=== PATIENT | male | born 1965 | race Caucasian/White ===

== ENCOUNTER 2020-02-29 04:02 | Emergency (ER) | payer MEDICAID ==
[2020-02-29 04:13] VITALS: BP 163/104; PULSE 102
--- NOTE | 2020-02-29 04:49 | EDM.PDOC ---
ED HPI GENERAL MEDICAL PROBLEM - General Chief Complaint: Lower Extremity Injury/Pain Stated Complaint: Left leg numbness, left foot pain Time Seen by Provider: 02/29/20 04:15 Source of Information: Reports: Patient History Limitations: Reports: No Limitations - History of Present Illness INITIAL COMMENTS - FREE TEXT/NARRATIVE: Pt states he has had increased pain in left foot today and has had increased numness in leg for past several weeks Is diabetic No injury No fever No open areas Onset: Gradual Duration: Day(s):, Getting Worse Location: Reports: Lower Extremity, Left Quality: Reports: Ache, Throbbing Severity: Moderate Left Foot Pain Score (Numeric/FACES): 8 - Related Data Allergies Allergy/AdvReac Type Severity Reaction Status Date / Time hydrocodone Allergy Nausea and Verified 02/29/20 04:06 Vomiting oxycodone [Oxycodone] Allergy Nausea and Verified 02/29/20 04:06 Vomiting tramadol Allergy Nausea and Verified 02/29/20 04:06 Vomiting Home Meds: Home Meds Insulin Glargine,Hum.Rec.Anlog [Lantus Solostar] 20 unit SQ BEDTIME 02/20/14 [History] glyBURIDE [Glyburide] 5 mg PO DAILY 02/20/14 [History] metFORMIN [Glucophage] 1,000 mg PO BID 02/20/14 [History] sitaGLIPtin Phosphate [Januvia] 100 mg PO DAILY 02/20/14 [History] Bilberry 100 mg PO DAILY 10/08/15 [History] Naproxen Sodium [Aleve] 220 mg PO Q12H PRN 10/08/15 [History] Past Medical History HEENT History: Reports: Impaired Vision Cardiovascular History: Reports: High Cholesterol, Hypertension Respiratory History: Reports: Sleep Apnea Neurological History: Reports: CVA Endocrine/Metabolic History: Reports: Diabetes, Type II, Other (See Below) Other Endocrine/Metabolic History: Gout - Past Surgical History HEENT Surgical History: Reports: Other (See Below) GI Surgical History: Reports: Colonoscopy, Polypectomy Social & Family History - Living Situation & Occupation Living situation: Reports: , with Family Occupation: Employed Review of Systems - Review of Systems Review Of Systems: See Below Musculoskeletal: Reports: Other (left leg and foot pain) ED EXAM, GENERAL - Physical Exam Exam: See Below Extremities: Other (Left foot with mild edema Faint erythema to skin No joint effusion Skin intact with no open areas Mild decreased sensation) Course - Vital Signs Last Recorded V/S: Last Vital Signs Temp 99.2 F 02/29/20 04:12 Pulse 102 H 02/29/20 04:12 Resp 12 02/29/20 04:12 BP 163/104 H 02/29/20 04:12 Pulse Ox 100 02/29/20 04:12 - Orders/Labs/Meds Orders: Active Orders 24 hr Category Date Time Status Ankle Min 3V Lt [CR] Stat Exams 02/29/20 04:10 Ordered CBC WITH AUTO DIFF [HEME] Stat Lab 02/29/20 04:38 Ordered URIC ACID [CHEM] Stat Lab 02/29/20 04:38 Ordered - Re-Assessments/Exams Free Text/Narrative Re-Assessment/Exam: 02/29/20 04:49 Pt stable in ER Pt given Rocephin 1 gm IM in ER Departure - Departure Time of Disposition: 05:30 Disposition: Home, Self-Care 01 Clinical Impression: Leg pain, left Cellulitis Qualifiers: Site of cellulitis: extremity Site of cellulitis of extremity: lower extremity Laterality: left Qualified Code(s): L03.116 - Cellulitis of left lower limb - Discharge Information *PRESCRIPTION DRUG MONITORING PROGRAM REVIEWED*: Not Applicable *COPY OF PRESCRIPTION DRUG MONITORING REPORT IN PATIENT FABIAN: Not Applicable Instructions: Cellulitis, Adult Referrals: PCP,None [Primary Care Provider] - Additional Instructions: Rx Bactrim DS one pill twice a day Follow up in clinic in 2-3 days Sepsis Event Note (ED) - Evaluation Sepsis Screening Result: No Definite Risk - Focused Exam Vital Signs: Vital Signs Temp Pulse Resp BP Pulse Ox 02/29/20 04:12 99.2 F 102 H 12 163/104 H 100 - My Orders Last 24 Hours: My Active Orders 02/29/20 04:10 Ankle Min 3V Lt [CR] Stat 02/29/20 04:38 CBC WITH AUTO DIFF [HEME] Stat URIC ACID [CHEM] Stat - Assessment/Plan Last 24 Hours: My Active Orders 02/29/20 04:10 Ankle Min 3V Lt [CR] Stat 02/29/20 04:38 CBC WITH AUTO DIFF [HEME] Stat URIC ACID [CHEM] Stat
[2020-02-29] MEDS ORDERED: cefTRIAXone 1 GM Vial IM ONE (04:53)
== END 2020-02-29 05:20 | disposition home or self-care (01) ==
LOC: LL.ED 04:02
DX: L03.116 Cellulitis of left lower limb (principal); M79.605 Pain in left leg; I10 Essential (primary) hypertension; E11.9 Type 2 diabetes mellitus without complications; Z88.5 Allergy status to narcotic agent; Z79.4 Long term (current) use of insulin
CPT/HCPCS: 36415; 73610; 84550; 85025; 96372; 99283; J0696

== ENCOUNTER 2021-10-08 04:16 | Emergency (ER) | payer BC, MEDICAID ==
[2021-10-08 04:19] VITALS: PULSE 110
[2021-10-08] MEDS ORDERED: Ketorolac 30 MG/ML SDV IM ONE (05:27)
[2021-10-08 05:52] LABS: ANION GAP 17.8 meq/L (7-15)
[2021-10-08 06:07] VITALS: BP 131/91
== END 2021-10-08 06:34 | disposition home or self-care (01) ==
LOC: LL.ED 04:16
DX: M10.9 Gout, unspecified (principal); E78.00 Pure hypercholesterolemia, unspecified; I10 Essential (primary) hypertension; E11.9 Type 2 diabetes mellitus without complications; E66.9 Obesity, unspecified; Z68.33 Body mass index [BMI] 33.0-33.9, adult; Z86.73 Personal history of transient ischemic attack (TIA), and cerebral infarction without residual deficits; Z88.5 Allergy status to narcotic agent; Z79.4 Long term (current) use of insulin
CPT/HCPCS: 36415; 73562-RT; 80053; 85025; 86140; 96372; 99283-25; J1885

== ENCOUNTER 2021-10-24 05:29 | Emergency (ER) | payer BC ==
[2021-10-24] MEDS ORDERED: Ketorolac 30 MG/ML SDV IM ONE (05:45)
[2021-10-24 06:30] LABS: ANION GAP 10.1 meq/L (7-15); CHLORIDE,CL 101 mmol/L (98-107); SODIUM,NA 136 mmol/L (136-145)
[2021-10-24] MEDS ORDERED: Colchicine 0.6 MG Tab PO ONE ×2 (06:34→07:35)
[2021-10-24 06:58] VITALS: BP 149/94; PULSE 78
== END 2021-10-24 08:03 | disposition home or self-care (01) ==
LOC: LL.ED 05:29
DX: M10.9 Gout, unspecified (principal); E78.00 Pure hypercholesterolemia, unspecified; I10 Essential (primary) hypertension; E11.9 Type 2 diabetes mellitus without complications; E66.9 Obesity, unspecified; Z88.5 Allergy status to narcotic agent; Z79.4 Long term (current) use of insulin; Z68.33 Body mass index [BMI] 33.0-33.9, adult; Z79.02 Long term (current) use of antithrombotics/antiplatelets; Z79.899 Other long term (current) drug therapy; Z86.73 Personal history of transient ischemic attack (TIA), and cerebral infarction without residual deficits
CPT/HCPCS: 36415; 80053; 84550; 85025; 96372; 99283; A9270-GY; J1885

== ENCOUNTER 2021-11-11 00:16 | Emergency (ER) | payer BC ==
[2021-11-11] MEDS: methylPREDNISolone Sodium Succinate 125 MG/2 ML SDV IM ONE (01:19)
[2021-11-11] MEDS: Ketorolac 15 MG/ML SDV IM ONE (01:19)
[2021-11-11] MEDS: sulfaSALAzine 500 MG Tab PO ONE (01:30)
[2021-11-11 01:33] VITALS: BP 132/91; PULSE 102
== END 2021-11-11 01:50 | disposition home or self-care (01) ==
LOC: LL.ED 00:16
DX: M25.461 Effusion, right knee (principal); I10 Essential (primary) hypertension; E78.00 Pure hypercholesterolemia, unspecified; E11.9 Type 2 diabetes mellitus without complications; M10.9 Gout, unspecified; E66.9 Obesity, unspecified; Z86.73 Personal history of transient ischemic attack (TIA), and cerebral infarction without residual deficits; Z68.30 Body mass index [BMI] 30.0-30.9, adult; Z88.5 Allergy status to narcotic agent; Z79.4 Long term (current) use of insulin; Z79.02 Long term (current) use of antithrombotics/antiplatelets; Z79.899 Other long term (current) drug therapy
CPT/HCPCS: 96372; 99283; A9270-GY; J1885; J2930